=== PATIENT | male | born 1980 | race African-American/Black ===

== ENCOUNTER 2018-04-17 13:46 | Emergency (ER) | payer OTHER ==
[~2018-04-17] VITALS: Ht 180.3 cm; Wt 86.2 kg
== END 2018-04-17 17:12 | disposition home or self-care (01) ==
LOC: ER 13:46
DX: S76.112A Strain of left quadriceps muscle, fascia and tendon, initial encounter (principal); X50.3XXA Overexertion from repetitive movements, initial encounter; Y93.B9 Activity, other involving muscle strengthening exercises; Y92.89 Other specified places as the place of occurrence of the external cause; Y99.8 Other external cause status